=== PATIENT | female | born 1935 | race Asian ===

== ENCOUNTER 2021-05-16 00:16 | Inpatient (IN) | payer OTHER, MEDICAID ==
[~2021-05-16] VITALS: Ht 157.5 cm; Wt 51.3 kg
[2021-05-16 00:16] VITALS: BP_SYST 196
--- NOTE | 2021-05-16 00:16 | NUR ---
Placed in room 1 . Placed on athletic monitor, blood pressure machine and pulse oximeter. To gown for exam. Side rails up.
--- NOTE | 2021-05-16 00:16 | NUR ---
# 20 gauge angiocath placed to LEFT WRIST BY EMS. Use of asceptic technique. Opsite placed over site. Blood return noted. Flushed with 10 cc of normal saline. No evidence of infiltration noted. Patient tolerated well.
--- NOTE | 2021-05-16 00:30 | NUR ---
Pt BIB ALS from home c/o generalized weakness x1 day. Pt was noted to have an episode of urinary incontinence and slipped in her urine per EMS report. Pt was found on ground by family. Denies head trauma. Per daughter pt is A/o x4.
--- NOTE | 2021-05-16 00:45 | NUR ---
# 20 gauge angiocath placed to LAC. Use of asceptic technique. Opsite placed over site. Blood return noted. Blood for lab drawn from site. Flushed with 10 cc of normal saline. No evidence of infiltration noted. Patient tolerated well.
--- NOTE | 2021-05-16 01:00 | NUR ---
Dr. Taylor at bedside for MSE
[2021-05-16] MEDS ORDERED: OXYB10TA4 PO (01:04)
[2021-05-16] MEDS ORDERED: CLOP75TA32 PO (01:04)
[2021-05-16] MEDS ORDERED: OMEP40CA20 PO (01:05)
[2021-05-16] MEDS ORDERED: MELO15TA13 PO (01:05)
[2021-05-16] MEDS ORDERED: OLME40TA12 PO (01:06)
[2021-05-16 01:23] LABS: BASOPHILS % (AUTO) 0.1 % (0.0-2.0); HEMATOCRIT 40.5 % (36-48); HEMOGLOBIN 12.8 g/dL (12.0-16.0); LYMPHOCYTES # (AUTO) 0.5 K/uL (1.0-5.5); LYMPHOCYTES % (AUTO) 2.6 % (20.5-51.5); MEAN CORPUSCULAR HEMOGLOBIN 21 pg (27-31); MEAN CORPUSCULAR HGB CONC 32 % (32-36); MEAN CORPUSCULAR VOLUME 68 fL (79.0-98.0); MONOCYTES # (AUTO) 1.3 K/uL (0.0-1.0); MONOCYTES % (AUTO) 6.4 % (1.7-9.3); NEUTROPHILS # (AUTO) 18.1 K/uL (1.8-7.7); NEUTROPHILS % (AUTO) 90.9 % (40.0-70.0); PLATELET COUNT (AUTO) 236 K/uL (130-430); RED CELL DISTRIBUTION WIDTH 14.6 % (9.0-15.0); WHITE BLOOD COUNT (AUTO) 19.9 K/uL (4.8-10.8)
[2021-05-16 01:24] LABS: ANION GAP 12 (5-15); CALCIUM 10.5 mg/dL (8.4-11.0); CHLORIDE 98 mmol/L (98-107); CREATININE 1.07 mg/dL (0.55-1.30); GLUCOSE 273 mg/dL (70-99); POTASSIUM 3.2 mmol/L (3.5-5.1); SODIUM SERUM 136 mmol/L (136-145); UREA NITROGEN, BLOOD 16 mg/dL (8-21)
[2021-05-16 01:28] LABS: INR 1.1 (0.8-1.2); PROTHROMBIN TIME 11.1 SECS (9.5-12.5)
[2021-05-16 01:30] LABS: ALANINE AMINOTRANSFERASE 25 U/L (12-78); ALBUMIN 3.3 g/dL (3.4-4.8); ASPARTATE AMINOTRANSFERASE 21 U/L (10-37); TOTAL BILIRUBIN 0.9 mg/dL (0.0-1.0)
[2021-05-16 01:33] LABS: ALCOHOL, BLOOD < 3 mg/dL (<10)
[2021-05-16] MEDS ORDERED: NACL 0.9% IV ONE (02:15)
[2021-05-16] MEDS ORDERED: CEFEPIME 2 GM in D5W 100 ML IV ONE (02:15)
[2021-05-16] MEDS ORDERED: CEFEPIME 1 GM/VIAL (MAXIPIME) ONE ×2 (02:31→02:32)
--- NOTE | 2021-05-16 03:00 | NUR ---
Patient resting quietly. No acute distress noted.
[2021-05-16 03:11] LABS: BILIRUBIN,URINE NEGATIVE (NEGATIVE); BLOOD, URINE 3+ (NEGATIVE); COLOR,URINE YELLOW (YELLOW); GLUCOSE,URINE 3+ (NEGATIVE); KETONES,URINE 1+ (NEGATIVE); LEUKOCYTE ESTERASE ,URINE NEGATIVE (NEGATIVE); NITRITE, URINE NEGATIVE (NEGATIVE); PH,URINE 5.5 (5.0-8.0); PROTEIN URINE 2+ (NEGATIVE); UROBILINOGEN,URINE 0.2 (0.2-1.0)
[2021-05-16 03:13] LABS: CLARITY/URINE SLIGHTLY CLOUDY (CLEAR)
[2021-05-16 03:23] LABS: BARBITURATE, URINE NEGATIVE (NEG <=200); BENZODIAZEPINE, URINE NEGATIVE (NEG <=150); CANNABINOID, URINE NEGATIVE (NEG <=50); COCAINE, URINE NEGATIVE (NEG <=150); METHAMPHETAMINES SCREEN,URINE NEGATIVE (NEG <=500); OPIATE, URINE NEGATIVE (NEG <=100); PHENCYCLIDINE SCREEN,URINE NEGATIVE (NEG <=25); UR TRICYCLIC ANTIDEPRESSANTS NEGATIVE (NEG <=300); URINE AMPHETAMINE NEGATIVE (NEG <=500); URINE METHADONE NEGATIVE (NEG <=200); URINE OXYCODONE SCREEN NEGATIVE (NEG <=100); URINE PROPOXYPHENE SCREEN NEGATIVE (NEG <=300)
[2021-05-16 03:30] LABS: RBC,URINE 20-50 /HPF (0-3)
[2021-05-16 03:31] LABS: BACTERIA,URINE FEW /HPF (None Seen); WBC,URINE 0-3 /HPF (0-3)
--- NOTE | 2021-05-16 03:55 | NUR ---
Patient will be admitted to care of DR. JONES. Admitted to TELE unit. Belongings list completed. Complete and up to date summary report printed. SBAR report to be given at bedside with opportunity for questions.
[2021-05-16] MEDS ORDERED: ACETAMINOPHEN 325 MG TABLET PO PRN (04:00)
--- NOTE | 2021-05-16 04:39 | NUR ---
Medication reconciliation completed with information provided by PATIENT MEDICATIONS. Any prior medication reconciliation on file was reviewed and corrected.
--- NOTE | 2021-05-16 04:39 | NUR ---
Patient's code status is FULL CODE paperwork completed and placed in chart.
--- NOTE | 2021-05-16 06:15 | NUR ---
Patient resting quietly. No acute distress noted.
--- NOTE | 2021-05-16 07:11 | NUR ---
Report given to Leeroy BRADLEY.
--- NOTE | 2021-05-16 07:37 | NUR ---
PT IS RESTING WELL IN BED, SHE IS ALERT AND TALKING TO RN. PT IS AWAITING ADMISSION BED.
--- NOTE | 2021-05-16 07:58 | NUR ---
ADMITTED, RN TAKEN PT TO 104. REPORT FACE TO FACE.
--- NOTE | 2021-05-16 08:21 | NUR ---
ADMISSION NOTE Received patient from ER via roula, received report from CAMELIA BRADLEY. Patient admitted with diagnosis of ALOC. Patient oriented to hospital routine, call light, toileting and safety-patient verbalized understanding.
[2021-05-16 08:22] VITALS: BP_SYST 160
--- NOTE | 2021-05-16 08:48 | NUR ---
CONSULTATION PAGED/CALLED Reason for Consultation: [] SEPSIS Person Who was Notified: [] DANTE Consulting Physician: [] DR DAY Ukrainian Folk Arts Instructor Specialty: [] ID Ordering Physician: [] DR JONES
[2021-05-16 08:58] VITALS: BP_SYST 160
[2021-05-16] MEDS ORDERED: cefTRIAXone 1 GM VIAL IM SCH (09:00)
--- NOTE | 2021-05-16 09:54 | NUR ---
Mobility Ambulate with assist to bathroom no dizziness unsteady no dizziness
[2021-05-16] MEDS ORDERED: amLODIPine BESYLATE 10 MG TABLET PO ONE (10:00)
[2021-05-16] MEDS: KCL 20 mEq in 0.45% NS 1000 mL 1,000 ML IV SCH ×2 (10:28→21:07)
[2021-05-16 10:29] LABS: BASOPHILS % (AUTO) 0.2 % (0.0-2.0); EOSINOPHILS % (AUTO) 0.1 % (0.0-4.0); HEMATOCRIT 39.9 % (36-48); HEMOGLOBIN 12.4 g/dL (12.0-16.0); LYMPHOCYTES # (AUTO) 0.7 K/uL (1.0-5.5); LYMPHOCYTES % (AUTO) 3.7 % (20.5-51.5); MEAN CORPUSCULAR HEMOGLOBIN 21 pg (27-31); MEAN CORPUSCULAR HGB CONC 31 % (32-36); MEAN CORPUSCULAR VOLUME 68 fL (79.0-98.0); MONOCYTES % (AUTO) 5.4 % (1.7-9.3); NEUTROPHILS # (AUTO) 15.9 K/uL (1.8-7.7); NEUTROPHILS % (AUTO) 90.6 % (40.0-70.0); PLATELET COUNT (AUTO) 217 K/uL (130-430); RED BLOOD CELL COUNT(AUTO) 5.87 MIL/uL (4.2-6.2); WHITE BLOOD COUNT (AUTO) 17.6 K/uL (4.8-10.8)
[2021-05-16] MEDS ORDERED: cefTRIAXone 1 GM VIAL IV SCH (10:30)
[2021-05-16] MEDS ORDERED: cefTRIAXone 1 GM IVPB PREMIX 50 ML IV SCH (10:30)
[2021-05-16] MEDS ORDERED: ATOR10TA68 PO (10:38)
[2021-05-16 10:43] LABS: ANION GAP 12 (5-15); CALCIUM 9.4 mg/dL (8.4-11.0); CHLORIDE 101 mmol/L (98-107); CREATININE 0.92 mg/dL (0.55-1.30); GLUCOSE 281 mg/dL (70-99); POTASSIUM 3.3 mmol/L (3.5-5.1); SODIUM SERUM 136 mmol/L (136-145); UREA NITROGEN, BLOOD 15 mg/dL (8-21)
[2021-05-16 10:45] LABS: RED CELL DISTRIBUTION WIDTH 14.5 % (9.0-15.0)
[2021-05-16 10:53] LABS: ALANINE AMINOTRANSFERASE 22 U/L (12-78); ALBUMIN 2.8 g/dL (3.4-4.8); ASPARTATE AMINOTRANSFERASE 20 U/L (10-37); TOTAL BILIRUBIN 0.7 mg/dL (0.0-1.0)
[2021-05-16] MEDS: INSULIN REGULAR, HUMAN 100 UNITS/ML, 10 ML VIAL (humuLIN R) SUBCUT PRN ×2 (11:05→16:59)
[2021-05-16 11:32] VITALS: BP_SYST 144
[2021-05-16] MEDS: CEFTRIAXONE SOD 1 GM/ D5W 50 ML IV SCH ×2 (11:34)
[2021-05-16 11:50] LABS: THYROID STIMULATING HORMONE 0.45 uIu/mL (0.36-3.74)
--- NOTE | 2021-05-16 12:15 | NUR ---
Patient denies any pain , able to ambulate to bathroom with assist unsteady gait no dizziness
[2021-05-16 15:53] VITALS: BP_SYST 135
--- NOTE | 2021-05-16 17:45 | NUR ---
Seen and examined by Adrian Lehman spoke to daughter Dana.
[2021-05-16] MEDS ORDERED: LEVOCETIRIZINE PO (17:58)
[2021-05-16] MEDS ORDERED: CANA300T PO (17:58)
--- NOTE | 2021-05-16 18:20 | NUR ---
P.T. NOTES P.T. EVAL COMPLETED; REFER TO EVAL FOR DETAILS.
[2021-05-16 19:00] VITALS: BP_SYST 117
--- NOTE | 2021-05-16 20:34 | NUR ---
[facility] will callDrJay.
[2021-05-17] MEDS: INSULIN REGULAR, HUMAN 100 UNITS/ML, 10 ML VIAL (humuLIN R) SUBCUT PRN ×3 (01:12→20:19)
[2021-05-17 07:45] VITALS: BP_SYST 138
[2021-05-17] MEDS: KCL 20 mEq in 0.45% NS 1000 mL 1,000 ML IV SCH ×2 (08:13→23:40)
[2021-05-17] MEDS: LOSARTAN POTASSIUM 50 MG TABLET (COZAAR) PO SCH (08:13)
[2021-05-17] MEDS: amLODIPine BESYLATE 10 MG TABLET PO SCH (09:59)
--- NOTE | 2021-05-17 10:00 | NUR ---
Nutrition Update Rivera Scale 17 noted. Pt admitted for ALOC. Diet: CCHO, mechanical soft BMI: 20.7 kg/m2 RD to follow per nutrition care standards.
[2021-05-17] MEDS: NYSTATIN 30 GM TOPICAL CREAM TP SCH ×2 (10:11→20:14)
--- NOTE | 2021-05-17 10:16 | NUR ---
skin/care comfort Perineal, vaginal , bilateral groin redness looks much better compare in the morning , nystatin cream applied.
[2021-05-17 11:37] LABS: BASOPHILS # (AUTO) 0.1 K/uL (0.0-0.2); BASOPHILS % (AUTO) 0.6 % (0.0-2.0); EOSINOPHILS # (AUTO) 0.1 K/uL (0.0-0.4); EOSINOPHILS % (AUTO) 0.8 % (0.0-4.0); HEMOGLOBIN 11.3 g/dL (12.0-16.0); LYMPHOCYTES # (AUTO) 0.9 K/uL (1.0-5.5); LYMPHOCYTES % (AUTO) 7.9 % (20.5-51.5); MEAN CORPUSCULAR HEMOGLOBIN 21 pg (27-31); MEAN CORPUSCULAR HGB CONC 31 % (32-36); MEAN CORPUSCULAR VOLUME 68 fL (79.0-98.0); MONOCYTES # (AUTO) 1.2 K/uL (0.0-1.0); NEUTROPHILS # (AUTO) 9.5 K/uL (1.8-7.7); PLATELET COUNT (AUTO) 185 K/uL (130-430); RED BLOOD CELL COUNT(AUTO) 5.34 MIL/uL (4.2-6.2); RED CELL DISTRIBUTION WIDTH 14.5 % (9.0-15.0); WHITE BLOOD COUNT (AUTO) 11.7 K/uL (4.8-10.8)
[2021-05-17] MEDS: CEFTRIAXONE SOD 1 GM/ D5W 50 ML IV SCH ×2 (11:39)
[2021-05-17 11:40] VITALS: BP_SYST 125
[2021-05-17 11:50] LABS: NEUTROPHILS % (AUTO) 80.7 % (40.0-70.0)
[2021-05-17 16:04] VITALS: BP_SYST 131
--- NOTE | 2021-05-17 16:11 | NUR ---
Amador JUAREZ specialist Dr. Campbell for blood culture result. Addendum: 05/17/21 at 1739 by Kathia Stone RN Spoke to Dr. Campbell no change in order.
[2021-05-17 16:52] LABS: ANION GAP 10 (5-15); CHLORIDE 102 mmol/L (98-107); GLUCOSE 167 mg/dL (70-99); POTASSIUM 3.6 mmol/L (3.5-5.1); SODIUM SERUM 134 mmol/L (136-145)
[2021-05-17 16:53] LABS: ALANINE AMINOTRANSFERASE 25 U/L (12-78); ALBUMIN 2.3 g/dL (3.4-4.8); ASPARTATE AMINOTRANSFERASE 27 U/L (10-37); CALCIUM 8.9 mg/dL (8.4-11.0); CREATININE 0.79 mg/dL (0.55-1.30); TOTAL BILIRUBIN 0.4 mg/dL (0.0-1.0); UREA NITROGEN, BLOOD 14 mg/dL (8-21)
[2021-05-17 20:00] VITALS: BP_SYST 137
--- NOTE | 2021-05-17 20:00 | NUR ---
INITIAL NOTES: PT IS AWAKE , CANTONESE SPEAKING , VITALS ARE STABLE ; ON ROOM AIR ; IV FLUID IS INFUSING WELL TO LEFT WRIST 20 G, NO S/S OF ANY INFILTRATION NOTICED . ASSESSMENT COMPLETED ; DAUGHTER AT BEDSIDE , ASSISTED WITH TRANSLATION , DUE MEDICATION EXPLAINED TO HER .YOLIE CARE GIVEN ,DION CHANGED ,PAT DRIED , APPLIED MYCOSTATIN PER ORDER . BED IN LOW AND LOCK POSITION ,CALL MCADAMS IN EACH ; ENCOURAGED PT TO CALL FOR ASSIST . WILL CONTINUE TO MONITOR PT .
[2021-05-18 02:20] VITALS: BP_SYST 123
--- NOTE | 2021-05-18 02:20 | NUR ---
RN NOTES; NOTICED THAT IV FLUID CONNECTED TO LEFT WRIST IS LEAKING , IV FLUID DISCONNECTED AND CONNECTED TO THE IV ON THE L AC , IV FLUSHED WELL , NO S/S OF ANY INFILTRATION NOTICED . PT IS INCONTINENT WITH URINE , PT CLEANED , LINEN , DION , AND GOWN CHANGED . PT IS COMFORTABLE .
--- NOTE | 2021-05-18 06:08 | NUR ---
RN NOTES; BS 142, NO COVERAGE NEEDED ; PT IS COMFRTABLE ; WAS SLEEPING ,EASILY AROUSABLE , WILL CONTINUE TO MONITOR PT .
--- NOTE | 2021-05-18 06:42 | NUR ---
CLOSING NOTES; PT IS SLEEPING, NOT IN ANY ACUTE DISTRESS; RESPIRATION IS EVEN AND NON LABORED ; ALL NEEDS ATTENDED ; WILL CONTINUE TO MONITOR AND WILL ENDORSE TO NEXT SHIFT NURSE .
--- NOTE | 2021-05-18 08:00 | NUR ---
OPENING NOTES: PATIENT EATING BREAKFAST. NO ACUTE DISTRESS NOTED. IV PATENT AND INFUSING WELL. FALL AND SAFETY REINFORCED. CALL LIGHT WITHIN REACH.
[2021-05-18 08:36] LABS: BASOPHILS # (AUTO) 0.1 K/uL (0.0-0.2); BASOPHILS % (AUTO) 0.6 % (0.0-2.0); EOSINOPHILS # (AUTO) 0.1 K/uL (0.0-0.4); EOSINOPHILS % (AUTO) 1.4 % (0.0-4.0); HEMATOCRIT 38.7 % (36-48); HEMOGLOBIN 12.3 g/dL (12.0-16.0); LYMPHOCYTES # (AUTO) 0.9 K/uL (1.0-5.5); LYMPHOCYTES % (AUTO) 10.4 % (20.5-51.5); MEAN CORPUSCULAR HEMOGLOBIN 21 pg (27-31); MEAN CORPUSCULAR HGB CONC 32 % (32-36); MEAN CORPUSCULAR VOLUME 67 fL (79.0-98.0); MONOCYTES # (AUTO) 1.1 K/uL (0.0-1.0); MONOCYTES % (AUTO) 12.2 % (1.7-9.3); NEUTROPHILS # (AUTO) 6.9 K/uL (1.8-7.7); NEUTROPHILS % (AUTO) 75.4 % (40.0-70.0); PLATELET COUNT (AUTO) 208 K/uL (130-430); RED BLOOD CELL COUNT(AUTO) 5.77 MIL/uL (4.2-6.2); RED CELL DISTRIBUTION WIDTH 14.6 % (9.0-15.0); WHITE BLOOD COUNT (AUTO) 9.1 K/uL (4.8-10.8)
[2021-05-18] MEDS: NYSTATIN 30 GM TOPICAL CREAM TP SCH ×2 (09:47→20:46)
[2021-05-18] MEDS: LOSARTAN POTASSIUM 50 MG TABLET (COZAAR) PO SCH (09:49)
[2021-05-18] MEDS: amLODIPine BESYLATE 10 MG TABLET PO SCH (09:49)
--- NOTE | 2021-05-18 11:23 | NUR ---
Dietitian Recommendations *Recommend: continue Mechanical soft CCHO diet, add Glucerna TID. ONS will provide additional 660 kcal and 30gm protein daily. *Encourage PO intake. Please see Nutritional Assessment for details. LUZ CAMPBELL
[2021-05-18] MEDS: INSULIN REGULAR, HUMAN 100 UNITS/ML, 10 ML VIAL (humuLIN R) SUBCUT PRN ×3 (12:19→21:46)
[2021-05-18] MEDS: CEFTRIAXONE SOD 1 GM/ D5W 50 ML IV SCH ×2 (12:24)
[2021-05-18] MEDS: KCL 20 mEq in 0.45% NS 1000 mL 1,000 ML IV SCH (12:35)
[2021-05-18 12:55] VITALS: BP_SYST 131
--- NOTE | 2021-05-18 14:41 | NUR ---
RN Notes/ IV reinsertion: IV WAS PULLED OUT BY THE PATIENT. CATHETER TIP INTACT. IV REINSERTION DONE, GAUGE 20 AT RIGHT WRIST. NO SIGNS OF ACUTE DISTRESS NOTED. CALL LIGHT WITHIN REACH.
[2021-05-18] MEDS: GENTAMICIN SULFATE IV SCH (14:44)
[2021-05-18] MEDS: NS IV SCH (14:44)
[2021-05-18 18:29] VITALS: BP_SYST 120
--- NOTE | 2021-05-18 18:55 | NUR ---
CLOSING NOTES: PATIENT EATING DINNER. NO SIGNS OF ACUTE DISTRESS NOTED. NEEDS MET THROUGH OUT SHIFT. FALL AND SAFETY MEASURES RENDERED. CALL LIGHT WITHIN REACH.
--- NOTE | 2021-05-18 19:30 | NUR ---
CHANGE OF SHIFT; endorsed by day shift. no distress. on fall risk precautions. pt. room close to nurses station. call light at bedside.
[2021-05-18 20:00] VITALS: BP_SYST 123
--- NOTE | 2021-05-18 21:00 | NUR ---
NOTES: pt. awake, mandarin speakinng. due medication given. IVF patent. pt. incontinent of urine. white pads removed by herslef and fpmay on the floor. told to call foe help. repositioned. denies any pain as interpreted by anothe nurse. pt. room close to nurses leonel. call light withi reach. bed alrm on.
[2021-05-19 00:30] VITALS: BP_SYST 121
--- NOTE | 2021-05-19 02:00 | NUR ---
NOTES: pt. sleeping, no distress. on fall risk.
[2021-05-19] MEDS: KCL 20 mEq in 0.45% NS 1000 mL 1,000 ML IV SCH ×2 (06:14→17:48)
--- NOTE | 2021-05-19 06:28 | NUR ---
CLOSING NOTES; IVF continuous. no further complaints. fall risk. call light at bedside. will endorse to incoming shift.
[2021-05-19] MEDS: INSULIN REGULAR, HUMAN 100 UNITS/ML, 10 ML VIAL (humuLIN R) SUBCUT PRN ×4 (06:47→22:13)
[2021-05-19 08:00] VITALS: BP_SYST 137
--- NOTE | 2021-05-19 08:38 | NUR ---
PHYSICAL THERAPY CO-SIGN The Physical Therapy Progress Notes documented by Machine Bender have been reviewed. Reviewed/Co-Signed by: Elie Turcios Documentation Done by: PATEL PARRY PTA Addendum: 05/19/21 at 0838 by Elie Turcios PT Amended: Links added.
[2021-05-19] MEDS: LOSARTAN POTASSIUM 50 MG TABLET (COZAAR) PO SCH (08:55)
[2021-05-19] MEDS: amLODIPine BESYLATE 10 MG TABLET PO SCH (08:55)
[2021-05-19] MEDS: NYSTATIN 30 GM TOPICAL CREAM TP SCH ×2 (08:56→21:40)
[2021-05-19 12:00] VITALS: BP_SYST 132
[2021-05-19] MEDS: CEFTRIAXONE SOD 1 GM/ D5W 50 ML IV SCH ×2 (12:27)
[2021-05-19 12:58] LABS: BASOPHILS # (AUTO) 0.1 K/uL (0.0-0.2); BASOPHILS % (AUTO) 1.2 % (0.0-2.0); EOSINOPHILS # (AUTO) 0.1 K/uL (0.0-0.4); HEMATOCRIT 40.4 % (36-48); LYMPHOCYTES % (AUTO) 10.3 % (20.5-51.5); MEAN CORPUSCULAR HEMOGLOBIN 21 pg (27-31); MEAN CORPUSCULAR HGB CONC 32 % (32-36); MEAN CORPUSCULAR VOLUME 67 fL (79.0-98.0); MONOCYTES # (AUTO) 1.2 K/uL (0.0-1.0); NEUTROPHILS # (AUTO) 7.6 K/uL (1.8-7.7); NEUTROPHILS % (AUTO) 75.5 % (40.0-70.0); PLATELET COUNT (AUTO) 223 K/uL (130-430); RED BLOOD CELL COUNT(AUTO) 6.06 MIL/uL (4.2-6.2); RED CELL DISTRIBUTION WIDTH 14.6 % (9.0-15.0)
[2021-05-19 13:11] LABS: ANION GAP 5 (5-15); CALCIUM 9.3 mg/dL (8.4-11.0); CHLORIDE 100 mmol/L (98-107); CREATININE 0.73 mg/dL (0.55-1.30); GLUCOSE 206 mg/dL (70-99); POTASSIUM 4.1 mmol/L (3.5-5.1); SODIUM SERUM 132 mmol/L (136-145); UREA NITROGEN, BLOOD 11 mg/dL (8-21)
[2021-05-19] MEDS: GENTAMICIN SULFATE IV SCH (15:30)
[2021-05-19] MEDS: NS IV SCH (15:30)
[2021-05-19 16:00] VITALS: BP_SYST 128
--- NOTE | 2021-05-19 19:15 | NUR ---
CHANGE OF SHIFT; endorsed by day shift. no acute distress. pt. daughter at bedside with some issues of getting out of be.. call light at bedside,
[2021-05-19 20:00] VITALS: BP_SYST 123
--- NOTE | 2021-05-19 20:00 | NUR ---
NOTES: Dr. Mcgowan was here earlier and checked pt. and talked to the daughter, concerned about the skin on both groin and perianal area, already getting ointment told MD. Vs checked. reminded pt. to call for help if needed to use bedpan or restroom. IVF infusing via rt. hand. on room air. some discomfort whe periare cleaned. on fall risk. bed alarm on. call light at bedside.
--- NOTE | 2021-05-19 23:30 | NUR ---
NOTES; pt. used bedpan and gregorio care done and applied cream/ointment. pt. repositioned self and turn to sides.
[2021-05-20 00:15] VITALS: BP_SYST 128
--- NOTE | 2021-05-20 02:00 | NUR ---
NOTES: condition observed, continue to monitor.
--- NOTE | 2021-05-20 04:15 | NUR ---
NOTES: 'pt. woke up, used bedpan and gregorio care done, more ointment applied on gregorio area and bilateral droin with Z abhishek. IV site redressed and secured with kerlix roll.
--- NOTE | 2021-05-20 04:30 | NUR ---
NOTES: pt. transferred to room 132 B via bed.
[2021-05-20] MEDS: KCL 20 mEq in 0.45% NS 1000 mL 1,000 ML IV SCH ×2 (06:31→20:14)
[2021-05-20] MEDS: INSULIN REGULAR, HUMAN 100 UNITS/ML, 10 ML VIAL (humuLIN R) SUBCUT PRN ×4 (06:36→20:13)
--- NOTE | 2021-05-20 06:45 | NUR ---
CLOSING NOTES; py. sleeping, awakened for BS 107, sliding scale coverage given. on fall risk. IVF patent and infusing. will endorse to incoming shift.
[2021-05-20 08:00] VITALS: BP_SYST 113
--- NOTE | 2021-05-20 08:00 | NUR ---
PATIENT IN BED, NO S/S OF DISTRESS, TOLERATING CARE, IV NOT INTACT REPLACED WITH NEW IV IN R FOREARM 22GAUGE, WILL CONTINUE TO MONITOR
[2021-05-20] MEDS: amLODIPine BESYLATE 10 MG TABLET PO SCH (09:28)
[2021-05-20] MEDS: LOSARTAN POTASSIUM 50 MG TABLET (COZAAR) PO SCH (09:28)
[2021-05-20] MEDS: NYSTATIN 30 GM TOPICAL CREAM TP SCH ×2 (09:29→20:15)
[2021-05-20 12:00] VITALS: BP_SYST 126
--- NOTE | 2021-05-20 12:00 | NUR ---
PATIENT AMBULATED TO BATHROOM WITH WALKER AND STAND BY ASSIST TOLERATED WELL
[2021-05-20] MEDS: CEFTRIAXONE SOD 1 GM/ D5W 50 ML IV SCH ×2 (12:17)
[2021-05-20 16:00] VITALS: BP_SYST 118
[2021-05-20] MEDS: GENTAMICIN SULFATE IV SCH (17:34)
[2021-05-20] MEDS: NS IV SCH (17:34)
--- NOTE | 2021-05-20 19:00 | NUR ---
PATIENT IN BED, NO S/S OF DISTRESS, ENDORSED CARE
--- NOTE | 2021-05-20 19:30 | NUR ---
Opening note Received report from day shift RN. Pt is awake with daughter at the bedside. No s/s of acute distress. Breathing is even and unlabored. IV site is intact and patent with fluids running at ordered rate. Fall and safety precautions are in place with bed in lowest position, bed alarm on, and call light within reach. Will continue to monitor.
[2021-05-20 22:00] VITALS: BP_SYST 116
--- NOTE | 2021-05-21 00:15 | NUR ---
RN rounds Pt is sleeping. No s/s of respiratory distress. Breathing is even and unlabored. No needs at this time. Will continue to monitor
[2021-05-21 00:47] VITALS: BP_SYST 120
--- NOTE | 2021-05-21 03:36 | NUR ---
RN rounds Performed AM care with SENIOR CATERING SALES MANAGER. Pt tolerated well. No s/s of acute distress. No other needs at this time. Bed is locked in lowest position with bed alarm on and call light within reach. Will continue to monitor
[2021-05-21] MEDS: INSULIN REGULAR, HUMAN 100 UNITS/ML, 10 ML VIAL (humuLIN R) SUBCUT PRN ×4 (06:15→20:31)
[2021-05-21 06:22] LABS: BASOPHILS # (AUTO) 0.1 K/uL (0.0-0.2); BASOPHILS % (AUTO) 0.7 % (0.0-2.0); EOSINOPHILS # (AUTO) 0.2 K/uL (0.0-0.4); EOSINOPHILS % (AUTO) 1.7 % (0.0-4.0); HEMATOCRIT 41.2 % (36-48); LYMPHOCYTES # (AUTO) 1.7 K/uL (1.0-5.5); LYMPHOCYTES % (AUTO) 17.3 % (20.5-51.5); MEAN CORPUSCULAR HEMOGLOBIN 21 pg (27-31); MEAN CORPUSCULAR HGB CONC 32 % (32-36); MEAN CORPUSCULAR VOLUME 67 fL (79.0-98.0); MONOCYTES # (AUTO) 1.4 K/uL (0.0-1.0); MONOCYTES % (AUTO) 14.3 % (1.7-9.3); NEUTROPHILS # (AUTO) 6.5 K/uL (1.8-7.7); PLATELET COUNT (AUTO) 250 K/uL (130-430); RED BLOOD CELL COUNT(AUTO) 6.14 MIL/uL (4.2-6.2); RED CELL DISTRIBUTION WIDTH 14.5 % (9.0-15.0); WHITE BLOOD COUNT (AUTO) 9.9 K/uL (4.8-10.8)
--- NOTE | 2021-05-21 06:37 | NUR ---
Closing note Pt is awake, assisted to the bathroom, tolerated well. No s/s of acute distress. IV site is intact and patent with fluids running at ordered rate. Fall and safety precautions are in place with bed in lowest position, bed alarm on, and call light within reach. Will continue to monitor until endorsed to day shift RN.
[2021-05-21 06:50] LABS: ANION GAP 11 (5-15); CALCIUM 9.2 mg/dL (8.4-11.0); CHLORIDE 102 mmol/L (98-107); CREATININE 0.76 mg/dL (0.55-1.30); GLUCOSE 189 mg/dL (70-99); POTASSIUM 3.9 mmol/L (3.5-5.1); SODIUM SERUM 138 mmol/L (136-145); UREA NITROGEN, BLOOD 8 mg/dL (8-21)
--- NOTE | 2021-05-21 07:47 | NUR ---
PATIENT IN BED, NO S/S OF DISTRESS, PATIENT IS ON ROOM AIR SATURATIONS >95%, NO REPORTED PAIN OR DISCOMFORT AT THIS TIME, AMBULATES TO RESTROOM WITH STAND BY ASSIST AND WALKER WITH MOMENTS OF INCONTINENCE, WILL ASSESS FOR INCONTINENCE FREQUENTLY AND CLEAN NEEDED, WILL PROVIDE SKIN CARE TO PERINEAL AND SACRAL REGION, BED IN LOWEST LOCKED POSITION, SAFETY MEASURES IN PLACE, CALL LIGHT WITHIN REACH, IV INTACT PATENT, WILL CONTINUE TO MONITOR.
[2021-05-21] MEDS: amLODIPine BESYLATE 10 MG TABLET PO SCH (08:54)
[2021-05-21] MEDS: NYSTATIN 30 GM TOPICAL CREAM TP SCH ×2 (08:55→20:27)
[2021-05-21] MEDS: LOSARTAN POTASSIUM 50 MG TABLET (COZAAR) PO SCH (08:56)
[2021-05-21 12:07] VITALS: BP_SYST 127
[2021-05-21] MEDS: CEFTRIAXONE SOD 1 GM/ D5W 50 ML IV SCH ×2 (12:22)
[2021-05-21] MEDS: KCL 20 mEq in 0.45% NS 1000 mL 1,000 ML IV SCH (12:22)
--- NOTE | 2021-05-21 13:30 | NUR ---
patient in bed, md at bedside, md said to continue on iv antibiotics and continue skin care.
[2021-05-21] MEDS: NS IV SCH (14:59)
[2021-05-21] MEDS: GENTAMICIN SULFATE IV SCH (14:59)
--- NOTE | 2021-05-21 16:00 | NUR ---
patient in bed, iv fluids running, tolerating care, no complaints at this time
[2021-05-21 16:16] VITALS: BP_SYST 108
--- NOTE | 2021-05-21 19:30 | NUR ---
Opening notes Pt is awake eating dinner with daughter at bedside. No s/s of acute distress. Breathing is even and unlabored. IV site is intact and patent. Fall and safety precautions are in place with bed in lowest position, bed alarm on, and call light within reach. Will continue to monitor.
[2021-05-21 20:00] VITALS: BP_SYST 124
--- NOTE | 2021-05-21 20:49 | NUR ---
PAGED : PAGED DR. JONES REGARDING ORDERS
--- NOTE | 2021-05-22 00:15 | NUR ---
RN rounds Pt is sleeping. No s/s of acute distress. No needs at this time. Will continue to monitor
[2021-05-22] MEDS ORDERED: ACETAMINOPHEN 325 MG TABLET PO PRN (00:45)
[2021-05-22 01:11] VITALS: BP_SYST 131
--- NOTE | 2021-05-22 03:30 | NUR ---
RN rounds Helped pt ambulate to the bathroom and back into bed, tolerated well. No s/s of acute distress. Fall and safety precautions in place. Will continue to monitor
[2021-05-22] MEDS: KCL 20 mEq in 0.45% NS 1000 mL 1,000 ML IV SCH (04:17)
[2021-05-22] MEDS: INSULIN REGULAR, HUMAN 100 UNITS/ML, 10 ML VIAL (humuLIN R) SUBCUT PRN (06:32)
--- NOTE | 2021-05-22 06:51 | NUR ---
Closing note Pt is resting in bed. no s/s of distress. Bed is locked in lowest position with bed alarm on. All needs met throughout shift. IV site is intact and patent with fluids running at ordered rate. Will continue to monitor until endorsed to day shift
--- NOTE | 2021-05-22 07:30 | NUR ---
OPENING NOTES: RECEIVED PATIENT FROM MARKETING RESEARCH ANALYST NURSE. PATIENT IS AWAKE LAYING DOWN IN BED. TOLERATED OXYGEN ON ROOM AIR WITH NO DISTRESS NOTED. IV LINE PATENT AND INTACT WITH NO INFILTRATION NOTED. PATIENT STABLE AT THIS TIME. SAFETY, FALL, AND ASPIRATION PRECAUTIONS ARE IN PLACE. BED LOCKED IN LOWEST POSITION AND CALL LIGHT IN REACH. WILL CONTINUE TO MONITOR PATIENT FOR ANY CHANGES.
[2021-05-22 08:00] VITALS: BP_SYST 131
[2021-05-22] MEDS: amLODIPine BESYLATE 10 MG TABLET PO SCH (08:52)
[2021-05-22] MEDS: LOSARTAN POTASSIUM 50 MG TABLET (COZAAR) PO SCH (08:53)
[2021-05-22] MEDS: NYSTATIN 30 GM TOPICAL CREAM TP SCH (08:53)
[2021-05-22] MEDS ORDERED: OMEPRAZOLE Non-Formulary 20 MG CAPSULE.DR PO SCH (09:00)
[2021-05-22] MEDS ORDERED: PANTOPRAZOLE SODIUM 40 MG TAB PO SCH (09:00)
[2021-05-22] MEDS ORDERED: LEVO750T45 PO (09:02)
[2021-05-22 09:23] VITALS: BP_SYST 131
--- NOTE | 2021-05-22 11:20 | NUR ---
D/C Patient Patient given medication reconciliation form and D/C instructions. Exit Care provided. Patient verbalized understanding. MD discussed with patient the results and treatment provided. Ambulatory with steady gait for discharge to home. Patient in stable condition, ID band removed. IV catheter removed, intact and dressing applied, no active bleeding. Rx of Levauquin given. Patient educated on pain management. All belongings sent with patient.
== END 2021-05-22 11:20 | disposition home or self-care (01) | DRG 871 ==
LOC: SED 00:16 → STU 03:53 → SMU 05-17 15:11
PROVIDERS: ADMIT Family Medicine; ATTEND Family Medicine
DX: A41.50 Gram-negative sepsis, unspecified (principal); G93.41 Metabolic encephalopathy; N39.0 Urinary tract infection, site not specified; F05 Delirium due to known physiological condition; I10 Essential (primary) hypertension; E11.9 Type 2 diabetes mellitus without complications; R29.6 Repeated falls; E78.5 Hyperlipidemia, unspecified; Z20.822 Contact with and (suspected) exposure to COVID-19
CPT/HCPCS: 36415; 70450-TC; 71045; 76376; 80048; 80053; 80170; 80307; 81000; 82140; 82550; 82962; 83605; 84443; 84484; 85025; 85610-TC; 85730-TC; 87040-TC; 93005; 97110-GP; 97112-GP; 97116-GP; 97530-GP; G0378; G0482; J0692; J0696; J1580; J1815; J3480; J7060